=== PATIENT | male | born 1990 | race African-American/Black ===

== ENCOUNTER 2019-07-07 10:14 | Emergency (ER) | payer MEDICAID ==
[~2019-07-07] VITALS: Ht 188 cm; Wt 120.0 kg
[2019-07-07] MEDS ORDERED: IBUPROFEN 600MG TABLET PO ONE (11:30)
[2019-07-07 13:10] VITALS: BP 143/73
== END 2019-07-07 13:11 | disposition home or self-care (01) ==
LOC: ER 10:14
DX: M25.512 Pain in left shoulder (principal); M25.561 Pain in right knee; M79.605 Pain in left leg; V49.40XA Driver injured in collision with unspecified motor vehicles in traffic accident, initial encounter; Y93.89 Activity, other specified; Y92.410 Unspecified street and highway as the place of occurrence of the external cause; Z88.6 Allergy status to analgesic agent
CPT/HCPCS: 73030; 73562; 73590; 99283